=== PATIENT | female | born 1950 | race Caucasian/White ===

== ENCOUNTER → 2016-11-05 | Outpatient (CLI) | payer MEDICARE, BC ==
[~2016-11-05] MED LIST: 5HTP; CALTRATE 600+D PO; CERTAGEN PO; EYE DROPS; FISH OIL 1,0001 CAP PO; FOSAMAX PO; MAG-OXIDE400 MG PO; PRAVACHOL PO; PRILOSEC PO; VITAMIN D 4001 UDTAB PO; [UNRECOGNIZED DRUG - OTHER]
--- NOTE | ~2016-11-05 | CT57 ---
[facility] Service of [facility] RADIOLOGY TEXT RESULTS PATIENT: MITCH JUAREZ LOCATION: [facility] : 48 UNIT #: [id number] AGE: [address]: Renay Javier APRN SEX: F ORDER DR: [id number] [address] [address] [id number] O MR#: [id number] Acc #: [id number] NAME: MITCH JUAREZ : 1950 SEX: F STUDY DATE/TIME: 11/05/2016 11:25 UNIT: [facility] ROOM: STUDY DESCRIPTION: CT Chest Wo Cont Attending Physician: Renay Javier A.P.R.N. Referring Physician: Renay Javier A.P.R.N. Ordering Physician: Renay Javier A.P.R.N. Primary Care Physician: Ky Funez M.D. MEDICAL IMAGING REPORT This report is preliminary unless electronic signature is present. EXAM Chest CT without contrast. HISTORY Bronchitis over the last 4-5 years with increasing shortness breath. Shortness of breath has been increasing over the past 1-1/2 years and is worse with exertion. TECHNIQUE Axial images were obtained through the chest without contrast and evaluated at lung and mediastinal windows. This CT exam was performed with one or more of the following radiation dose reduction techniques: automatic exposure control, adjustment of mA and/or kV according to patient size, and iterative reconstruction. COMPARISON Comparison scan from 10/28/2015. FINDINGS Chest images at mediastinal window show ectasia of the aorta. There is no evidence of mediastinal or hilar adenopathy and there is no evidence of pleural or pericardial fluid. Lung window imaging shows both lungs to be fully expanded and clear. No suspicious infiltrates are seen. No evidence of bronchiectasis. No evidence of a mass. IMPRESSION Negative chest CT. No active disease. Dictated by... [facility] RADIOLOGY TEXT RESULTS PATIENT: MITCH JUAREZ LOCATION: [facility] : 48 UNIT #: [id number] AGE: [address]: Renay Javier APRN SEX: F ORDER DR: Albert Mortensen M.D. THIS IS AN ELECTRONICALLY VERIFIED REPORT Albert Mortensen M.D. at 11/07/2016 9:58 AM STEPHIE/arpit TD: 11/06/2016 21:01 JOB #: [id number] MEDICAL IMAGING REPORT Page 1 of 1
== END | disposition home or self-care (01) ==
LOC: CCAT 11-04 14:40 → SCT 11:10 → CCAT 11:40 → SCT 11:40
DX: R91.1 Solitary pulmonary nodule (principal)
CPT/HCPCS: 71250